=== PATIENT | male | born 1960 | race Caucasian/White ===

== ENCOUNTER 2024-05-17 08:20 | Day surgery (SDC) | payer BC, SELFPAY ==
[2024-05-16 14:36] VITALS: BMI 20.9
[2024-05-17] VITALS (11 sets, daily range): BP systolic 93–119; BP diastolic 60–74; PULSE 64–76; RESP 13–20; TEMP 36.2–36.3; O2SAT 92–98; BMI 21.6
[2024-05-17] MEDS: MIDAZOLAM INJ 1 MG/ML VIAL 2 ML (ASD USE ONLY) 2 MG IV (10:40)
[2024-05-17] MEDS: DiphenhydrAMINE INJ 50 MG/ML VIAL 25 MG IV (10:40)
[2024-05-17] MEDS: fentaNYL CIT INJ 50 mCg/ML AMP 2ML (ASD USE ONLY) IV (10:40)
[2024-05-17] MEDS: ONDANSETRON INJ 2 MG/ML INJ 2 ML 4 MG (10:45)
== END 2024-05-17 11:40 | disposition home or self-care (01) ==
PROVIDERS: PCP Specialist; Referring Provider Specialist; Visit Provider Specialist
PROC: (CPT 43239; principal; 2024-05-17 10:00)
DX: K21.00 Gastro-esophageal reflux disease with esophagitis, without bleeding (principal); K29.70 Gastritis, unspecified, without bleeding; K31.89 Other diseases of stomach and duodenum
CPT/HCPCS: 43239; A4649; J1200; J2250; J2405; J3010